=== PATIENT | female | born 1950 | race Caucasian/White ===

== ENCOUNTER → 2017-12-15 | Outpatient (CLI) | payer MEDICARE ==
[~2017-12-15] MED LIST: GLUCOPHAGE1000 MG PO; LOW DOSE ASPIRI81 MG PO; OYSTER SHELL C1 EAC1 PO; PROTONIX40 MG PO; ZOCOR20 MG PO
== END | disposition home or self-care (01) ==
LOC: MAMMO 08:36
DX: R92.8 Other abnormal and inconclusive findings on diagnostic imaging of breast (principal); Z85.3 Personal history of malignant neoplasm of breast

== ENCOUNTER 2018-12-21 22:51 | Emergency (ER) | payer MEDICARE ==
[~2018-12-21] VITALS: Ht 160 cm; Wt 63.5 kg
--- NOTE | ~2018-12-21 | EKG ---
[place], [place] ELECTROCARDIOGRAM REPORT NAME: MADISYN MONSON UNIT #: [id number] ROOM: DOCTOR: EPIPHANY DRAFT REPORT BIRTHDATE: [birth year] [facility] Test Date: 2018-12-21 Test Time: 23:29:29 Pat Name: MADISYN MONSON Department: Room: 405 Gender: F Aquatics Manager: Mayela Veras : 1950 Requested By: KODY BARRON Order Number: [id number] Reading MD: Martir Perdue MD Measurements Intervals [place] Rate: 94 P: 54 [place]: 173 QRS: 10 QRSD: 85 T: 29 QT: 339 QTc: 424 Interpretive Statements Sinus rhythm Probable left atrial enlargement Minimal ST depression, lateral leads Electronically Signed On 12-22-2018 9:59:59 PDT by Martir Perdue MD CM:EKGRPT:ELECTROCARDIOGRAM REPORT [id number] KODY BARRON MD EPIPHANY DRAFT REPORT KODY BARRON MD
[2018-12-21 22:54] VITALS: BP 154/68
[2018-12-21 23:53] LABS: BASO % 0.2 % (0.0-1.0); EOS # 0.1 10*3/uL (0.0-0.4); EOS % 0.7 % (1.0-4.0); HEMATOCRIT 36.8 % (37.0-47.0); HEMOGLOBIN 11.9 g/dl (12.0-16.0); LYMPH # 0.6 10*3/uL (1.3-4.4); LYMPH % 5.5 % (27.0-41.0); MEAN CELL VOLUME 93.4 fl (81.0-99.0); MEAN CORPUSCULAR HGB 30.2 pg (27.0-31.0); MEAN CORPUSCULAR HGB CONC 32.3 g/dl (33.0-37.0); MEAN PLATELET VOLUME 10.1 fl (9.6-12.3); MONO # 0.6 10*3/uL (0.1-1.0); MONO % 4.9 % (3.0-9.0); NEUT # 10.2 10*3/uL (2.3-7.9); NEUT % 87.8 % (47.0-73.0); PLATELET COUNT AUTOMATED 280 10*3/uL (130-400); RED BLOOD COUNT 3.94 10*6/uL (4.10-5.10); RED CELL DISTRI WIDTH 14.6 % (0-14.5); WHITE BLOOD COUNT 11.5 10*3/uL (4.8-10.8)
[2018-12-22 00:03] LABS: ACT PARTIAL THROMBO TIME 23.4 SECONDS (20.8-31.5)
[2018-12-22 00:20] LABS: ALBUMIN 3.4 gm/dl (3.1-4.5); ALKALINE PHOSPHATASE 37 U/L (45-117); BUN 19 mg/dl (7-24); CHLORIDE 101 mmol/L (98-107); CREATININE 0.87 mg/dL (0.55-1.02); LIPASE 105 U/L (73-393); POTASSIUM 4.1 mmol/L (3.5-5.1); SGOT/AST 16 IU/L (3-35); SGPT/ALT 18 U/L (12-78); SODIUM 134 mmol/L (136-145); TOTAL PROTEIN 7.1 gm/dL (6.4-8.2)
[2018-12-22 00:23] LABS: TROPONIN I < 0.015 ng/ml (<0.045)
[2018-12-22 00:30] LABS: BILIRUBIN NEGATIVE (NEGATIVE); BLOOD NEGATIVE (NEGATIVE); CLARITY CLEAR (CLEAR); COLOR YELLOW (YELLOW); GLUCOSE NEGATIVE (NEGATIVE); KETONE NEGATIVE (NEGATIVE); LEUKO ESTERASE 1+ (NEGATIVE); NITRITE NEGATIVE (NEGATIVE); PH 5.5 (5.0-9.0); SPECIFIC GRAVITY <= 1.005 (1.005-1.030); UROBILINOGEN 0.2 E.U./dl (0.2-1.0)
[2018-12-22 00:45] LABS: BACTERIA TRACE; EPITHELIAL CELLS 25-30; RBC 0-2 rbc/hpf (0-2)
--- NOTE | 2018-12-22 04:27 | NUR ---
REPORT GIVEN TO [facility] CREW AT THIS TIME. CREW HERE TO TRANSPORT PATIENT TO [facility]. PATIENT LEAVING FACILITY IN STABLE CONDITION, RESPIRATIONS EASY, NON-LABORED ON ROOM AIR.
== END 2018-12-22 04:00 | disposition short-term general hospital (02) ==
LOC: ED 22:51 → EDHOLD 12-22 01:53 → 4E 12-22 02:20 → EDHOLD 12-22 02:20 → ED 12-22 04:00
PROVIDERS: Emergency Medicine Emergency Medical Services
DX: K52.9 Noninfective gastroenteritis and colitis, unspecified (principal); R22.0 Localized swelling, mass and lump, head; Z79.899 Other long term (current) drug therapy; Z79.84 Long term (current) use of oral hypoglycemic drugs; Z79.82 Long term (current) use of aspirin; Z90.49 Acquired absence of other specified parts of digestive tract

== ENCOUNTER → 2022-01-21 | Outpatient (CLI) | payer MEDICARE | END | disposition home or self-care (01) | LOC: CARD 00:52 | PROVIDERS: ATTEND Internal Medicine Cardiovascular Disease | DX: I25.10 Atherosclerotic heart disease of native coronary artery without angina pectoris (principal); R53.83 Other fatigue; R07.89 Other chest pain; Z95.1 Presence of aortocoronary bypass graft ==

== ENCOUNTER → 2023-04-11 | Outpatient (CLI) | payer MEDICARE | END | disposition home or self-care (01) | LOC: RESCLI 02:39 | PROVIDERS: ATTEND Student in an Organized Health Care Education/Training Program | DX: E78.2 Mixed hyperlipidemia (principal); I10 Essential (primary) hypertension; F41.9 Anxiety disorder, unspecified; R25.1 Tremor, unspecified; E11.65 Type 2 diabetes mellitus with hyperglycemia; K21.9 Gastro-esophageal reflux disease without esophagitis; I25.10 Atherosclerotic heart disease of native coronary artery without angina pectoris; Z82.49 Family history of ischemic heart disease and other diseases of the circulatory system; Z98.890 Other specified postprocedural states; Z79.84 Long term (current) use of oral hypoglycemic drugs; Z79.899 Other long term (current) drug therapy ==

== ENCOUNTER → 2023-08-04 | Outpatient (CLI) | payer MEDICARE ==
[2023-08-04 16:15] LABS: BILIRUBIN Negative (Negative); BLOOD Negative (Negative); CLARITY Cloudy (Clear); COLOR Yellow (Yellow); GLUCOSE 3+ (Negative); KETONE Negative (Negative); LEUKO ESTERASE Negative (Negative); NITRITE Negative (Negative); PH 6.5 (4.5-8.0); UROBILINOGEN 0.2 E.U./dl (0.0-1.0)
[2023-08-04 16:21] LABS: BACTERIA 1+; MUCOUS 1+; RBC 0-2 rbc/hpf (0-2); YEAST 1+
== END | disposition home or self-care (01) ==
LOC: LAB 15:39
PROVIDERS: ATTEND Nurse Practitioner Family
DX: R10.9 Unspecified abdominal pain (principal)